=== PATIENT | female | born 1975 | race Caucasian/White ===

== ENCOUNTER → 2020-06-30 | Outpatient (CLI) | payer OTHER ==
[~2020-06-30] MED LIST: CLARITIN10 M2 PO; FOLIC ACID0.4 MG PO; HABITROL 21 MG P1 EA TD; LISINOPRIL5 MG PO; NEURONTIN 300300 MG PO; OMEPRAZOLE20 MG PO; PROAIR HFA8.5 GM INH; PROPRANOLOL HCL40 MG PO; ROBAXIN 750 MG750 MG PO; VITAMIN B-COMP1 EAC1 PO; VITAMIN D5000 UNIT PO; VOLTAREN EC 7575 MG PO
[2020-06-30 07:54] LABS: HEMOGLOBIN 12.9 gm/dl (12.3-15.3); RED BLOOD COUNT 4.6 M/UL (4.00-5.10); WHITE BLOOD COUNT 9.5 K/UL (4.5-11.0)
[2020-06-30 08:14] LABS: BUN/CREATININE RATIO 9 (0-10)
[2020-07-01 09:11] LABS: VITAMIN D, 25-HYDROXY 12.2 ng/mL (30.0-100.0)
[2020-07-01 11:11] LABS: THYROXINE (T4) 12.1 ug/dL (4.5-12.0); TRIIODOTHYRONINE (T3) 160 ng/dL (71-180)
[2020-07-01 12:11] LABS: RHEUMATOID ARTHRITIS FACTOR <10.0 IU/mL (0.0-13.9)
== END ==
LOC: LAB 07:09
PROVIDERS: Nurse Practitioner Family
DX: M54.6 Pain in thoracic spine (principal); M54.5 Low back pain; M25.561 Pain in right knee; I10 Essential (primary) hypertension; E78.5 Hyperlipidemia, unspecified; E55.9 Vitamin D deficiency, unspecified; M17.11 Unilateral primary osteoarthritis, right knee; M51.36 Other intervertebral disc degeneration, lumbar region; M51.34 Other intervertebral disc degeneration, thoracic region
CPT/HCPCS: 36415; 72072; 72110; 73564; 80053; 80061; 84436; 84443; 84480; 85025; 85652; 86038; 86140; 86431

== ENCOUNTER 2020-07-02 18:40 | Emergency (ER) | payer OTHER | END 2020-07-02 20:04 | disposition home or self-care (01) | LOC: ER1 18:40 | DX: S83.91XA Sprain of unspecified site of right knee, initial encounter (principal); I10 Essential (primary) hypertension; F17.200 Nicotine dependence, unspecified, uncomplicated; Z90.89 Acquired absence of other organs; X50.9XXA Other and unspecified overexertion or strenuous movements or postures, initial encounter | CPT/HCPCS: 99283 ==

== ENCOUNTER → 2020-08-04 | Outpatient (CLI) | payer OTHER | LOC: MAMO 06:39 | DX: Z12.31 Encounter for screening mammogram for malignant neoplasm of breast (principal); E78.5 Hyperlipidemia, unspecified; E55.9 Vitamin D deficiency, unspecified | CPT/HCPCS: 36415; 77063; 77067; 80061 ==

== ENCOUNTER → 2020-11-11 | Outpatient (CLI) | payer OTHER | LOC: RAD 15:28 | DX: Z12.2 Encounter for screening for malignant neoplasm of respiratory organs (principal) | CPT/HCPCS: 71046 ==

== ENCOUNTER → 2021-06-23 | Outpatient (CLI) | payer BC, OTHER | LOC: EXRD 10:52 | DX: M25.561 Pain in right knee (principal); M54.50 Low back pain, unspecified; M51.36 Other intervertebral disc degeneration, lumbar region; M17.11 Unilateral primary osteoarthritis, right knee | CPT/HCPCS: 72110; 73564 ==

== ENCOUNTER 2021-09-23 17:14 | Emergency (ER) | payer BC, OTHER ==
[2021-09-23 20:11] LABS: HEMOGLOBIN 10.6 gm/dl (12.3-15.3); RED BLOOD COUNT 4.61 M/UL (4.00-5.10); WHITE BLOOD COUNT 10.5 K/UL (4.5-11.0)
[2021-09-23 20:16] LABS: BUN/CREATININE RATIO 4 (0-10)
== END 2021-09-23 23:30 | disposition home or self-care (01) ==
LOC: ER1 17:14
PROVIDERS: Family Medicine
DX: M48.061 Spinal stenosis, lumbar region without neurogenic claudication (principal); M99.63 Osseous and subluxation stenosis of intervertebral foramina of lumbar region; E66.01 Morbid (severe) obesity due to excess calories; D64.9 Anemia, unspecified; R20.0 Anesthesia of skin; F17.200 Nicotine dependence, unspecified, uncomplicated; E78.5 Hyperlipidemia, unspecified
CPT/HCPCS: 72131; 80048; 81001; 85025; 86140; 99284

== ENCOUNTER → 2021-11-05 | Outpatient (CLI) | payer BC, OTHER ==
[~2021-11-05] MED LIST changes: +FLEXERIL 10 MG10 MG PO; +IBUPROFEN600 MG PO; +PREDNISONE 50 M50 MG PO; +Voltaren Gel 1 % TOP
== END ==
LOC: EXRD 08:00
DX: J44.9 Chronic obstructive pulmonary disease, unspecified (principal); R09.02 Hypoxemia
CPT/HCPCS: 71046

== ENCOUNTER → 2021-11-16 | Outpatient (CLI) | payer BC, OTHER | LOC: HEART 5 14:11 | DX: J44.9 Chronic obstructive pulmonary disease, unspecified (principal) | CPT/HCPCS: 94060; 94729 ==

== ENCOUNTER → 2021-11-18 | Outpatient (CLI) | payer BC, OTHER | LOC: RT 11:29 | DX: R09.02 Hypoxemia (principal) | CPT/HCPCS: 36600; 82803 ==